=== PATIENT | male | born 1985 | race Caucasian/White ===

== ENCOUNTER 2018-03-04 14:37 | Outpatient (CLI) | payer OTHER ==
--- NOTE | 2018-03-05 12:47 | MRI Report ---
EXAM: MRI PELVIS WITHOUT CONTRAST EXAM DATE: 03/04/2018 03:59 PM. CLINICAL HISTORY: Left hip pain x3 weeks. COMPARISON: None. TECHNIQUE: Multiplanar, multisequence T1-weighted and fluid-sensitive sequences of the pelvis without contrast. Other: None. FINDINGS: Bones and articular surfaces: There is linear high signal consistent with tear at the anterior and an terosuperior left hip labrum. Tiny anterosuperior paralabral cyst formation measuring approximately 0 .4 cm short axis and 2.9 cm long axis coursing medially and superiorly from the anterosuperior labrum . No significant articular cartilage defects are seen. Sacroiliac joints appear symmetric and within normal limits. Pubic symphysis unremarkable. Musculotendinous structures: Fluid collection along the posterior margin of the right iliopsoas tendo n consistent with bursitis measuring 1.5 x 2.6 x 1.7 cm. No muscle edema, atrophy or fatty replacemen t. Miscellaneous: No significant pelvic free fluid. No lymphadenopathy. IMPRESSION: 1. Tear at the anterior and anterosuperior left hip labrum with small paralabral cyst formation. 2. Right iliopsoas bursitis. [facility] Referring Provider Line: [phone] SITE ID: [id number]
== END 2018-03-04 14:38 | disposition home or self-care (01) ==
LOC: DI 14:37
PROVIDERS: ATTEND Internal Medicine
DX: S73.102A Unspecified sprain of left hip, initial encounter (principal); M71.552 Other bursitis, not elsewhere classified, left hip
CPT/HCPCS: 72195

== ENCOUNTER 2018-12-14 09:15 | Outpatient (CLI) | payer OTHER ==
[2018-12-14] MEDS ORDERED: BUFFERED LIDOCAINE 10 ML SYRINGE ONE ×2 (09:46→11:49)
[2018-12-14] MEDS ORDERED: IOTHALAMATE MEGLUMINE 50 ML VIAL ONE (09:48)
[2018-12-14] MEDS ORDERED: GADOPENTETATE DIMEGLUMINE 5 ML VIAL IVP ONE ×3 (09:48→13:08)
[2018-12-14] MEDS ORDERED: IOTHALAMATE MEGLUMINE 50 ML VIAL IVP ONE (13:08)
[2018-12-14] MEDS: BUFFERED LIDOCAINE 10 ML SYRINGE IU ONE ×2 (13:09→13:15)
--- NOTE | 2018-12-14 13:49 | XRAY Report ---
Reason: PAIN IN LEFT HIP Procedure Date: 12/14/2018 Accession Number: [id number] / [id number] Procedure: FL - Arthrogram Needle Placement CPT Code: FULL RESULT: EXAM: LEFT HIP ARTHROGRAPHIC INJECTION WITH FLUOROSCOPIC GUIDANCE EXAM DATE: 12/14/2018 10:04 AM. CLINICAL HISTORY: Pain in left hip. COMPARISON: None. TECHNIQUE: The risks, benefits, and alternatives of the procedure were discussed with the patient. All questions were answered. Written and verbal consent were obtained. The hip joint was marked under fluoroscopy and prepped and draped in a sterile manner. Local anesthesia was performed with 1% lidocaine. A 22-gauge needle was then inserted into the hip joint. 10 mL of a solution containing 25% 1% lidocaine, 25% iodinated contrast, and a 1:200 dilution of gadolinium contrast in sterile saline was then injected. The needle was removed without immediate complication. Other: None. Fluoroscopy Time: 22 seconds. Number of Images: 5. FINDINGS: Bones and Joints: No fracture or subluxation. Injection: Fluoroscopic images demonstrate needle placement and contrast in the hip joint. IMPRESSION: Successful fluoroscopically guided arthrographic injection of the hip. [facility]
--- NOTE | 2018-12-14 16:02 | MRI Report ---
Reason: PAIN IN LEFT HIP Procedure Date: 12/14/2018 Accession Number: [id number] / [id number] Procedure: MRI - Arthrogram Hip LT CPT Code: FULL RESULT: EXAM: LEFT HIP MRI ARTHROGRAM WITH CONTRAST EXAM DATE: 12/14/2018 10:44 AM. CLINICAL HISTORY: Left hip pain. COMPARISON: 10/09/2018 radiograph. TECHNIQUE: Multiplanar, multisequence T1-weighted and fluid-sensitive, small jyuwk-am-nbrb sequences of the hip and large rpbjk-rz-csex sequences of the pelvis after an arthrographic injection of dilute gadolinium, dictated under a separate exam. Other: None. FINDINGS: Unfortunately, the contrast all leaked out of the joint space. Bones: No fractures or subluxations. No marrow edema or bone lesions. Left Hip: No acetabular retroversion. Femoral head/neck offset is within normal limits. No loose bodies. The articular cartilage is intact. There is suspicion for a full-thickness tear of the anterosuperior labrum at the 2 o'clock position (series 701, image 22 and series 901, image 22). The ligamentum teres is intact. Other Joints: Moderate degenerative change in the lower lumbar spine. The SI joints are normal. The right hip joint is unremarkable. Musculature: No edema or fatty atrophy. Minimal bilateral gluteus medius tendinosis is present. The visualized hamstring tendons are normal. The ischiofemoral space is normal. Pelvic Cavity: The visualized viscera are unremarkable. No lymphadenopathy. No free fluid in the pelvis. Other: The visualized sciatic nerves are unremarkable. No bursitis. The subcutaneous tissues are unremarkable. IMPRESSION: 1. Potential full-thickness tear of the anterosuperior labrum. This is difficult to confirm as nearly all the contrast leaked out of the joint space. The patient will be brought back for repeat examination and the present examination should not be charged. [facility]
--- NOTE | 2018-12-14 16:09 | MRI Report ---
Reason: LEFT HIP PAIN Procedure Date: 12/14/2018 Accession Number: [id number] / [id number] Procedure: MRI - Arthrogram Hip LT CPT Code: FULL RESULT: EXAM: LEFT HIP MRI ARTHROGRAM WITH CONTRAST EXAM DATE: 12/14/2018 01:55 PM. CLINICAL HISTORY: LEFT HIP PAIN. COMPARISON: ARTHROGRAM HIP 12/14/2018 10:44 AM. TECHNIQUE: Multiplanar, multisequence T1-weighted and fluid-sensitive, small cymxy-ot-bczd sequences of the hip and large zdksw-mt-xtap sequences of the pelvis after an arthrographic injection of dilute gadolinium, dictated under a separate exam. Other: None. FINDINGS: Bones: No fractures or subluxations. No marrow edema or bone lesions. Left Hip: No acetabular retroversion. Femoral head/neck offset is within normal limits. No loose bodies. The articular cartilage is intact. Anterior labrum tear. The ligamentum teres is intact. Left hip arthrogram contrast extravasation. Other Joints: Probable posterior left paracentral L5-S1 disk extrusion with severe left lateral recess stenosis and probable impingement proximal descending left S1 nerve root. Mild central spinal canal stenosis. Posterior 2-3 mm L4-L5 disk protrusion. Severe left L5-S1 disk degeneration. Modic type I degenerative marrow edema left L5-S1 interspace. Musculature: No edema or fatty atrophy. The gluteus medius and minimus tendons are normal. The visualized hamstring tendons are normal. The ischiofemoral space is normal. Pelvic Cavity: The visualized viscera are unremarkable. No lymphadenopathy. No free fluid in the pelvis. Other: The visualized sciatic nerves are unremarkable. No bursitis. The subcutaneous tissues are unremarkable. IMPRESSION: 1. Probable posterior left paracentral L5-S1 disk extrusion with severe left lateral recess stenosis and probable impingement proximal descending left S1 nerve root. 2. Anterior left hip acetabular labrum tear (image 20 series 701). [facility]
== END 2018-12-14 09:16 | disposition home or self-care (01) ==
LOC: DI 09:15
PROVIDERS: ATTEND Orthopaedic Surgery
DX: S73.192A Other sprain of left hip, initial encounter (principal); M51.26 Other intervertebral disc displacement, lumbar region; M51.37 Other intervertebral disc degeneration, lumbosacral region; M48.061 Spinal stenosis, lumbar region without neurogenic claudication
CPT/HCPCS: 27093; 73722; 77002; Q9961

== ENCOUNTER 2019-01-30 12:02 | Outpatient (CLI) | payer OTHER ==
--- NOTE | 2019-01-30 16:47 | MRI Report ---
Reason: L BACK PAIN WITH FALLS Procedure Date: 01/30/2019 Accession Number: [id number] / [id number] Procedure: MRI - Lumbar Spine W/O CPT Code: FULL RESULT: EXAM: MRI LUMBAR SPINE WITHOUT CONTRAST EXAM DATE: 01/30/2019 12:40 PM. CLINICAL HISTORY: Low back pain with falling. COMPARISON: None. TECHNIQUE: Multiplanar, multisequence T1-weighted and fluid-sensitive sequences of the lumbar spine from T12 to S1 without contrast. Other: None. FINDINGS: Spinal Canal: The conus terminates at L1. Unremarkable appearance of the conus medullaris. Alignment: Minimal levoconvex asymmetric curve. Bone Marrow: Five hzz-ufa-janogun lumbar vertebral bodies are assumed. Moderately prominent asymmetric Modic type I degenerative endplate signal changes laterally on the left at L5-S1. Disk Levels/Facets: T12-L1: Unremarkable. L1-L2: Slight disk bulge, otherwise unremarkable, no stenosis. L2-L3: Unremarkable. L3-L4: Unremarkable. L4-L5: Mild degenerative disk disease. Minimal facet arthropathy. Circumferential disk bulge. Additional shallow midline posterior protrusion with annular fissure. Minimal stenosis. No definite nerve root compression. L5-S1: Moderate to severe asymmetric left greater than right degenerative disk disease. Mild facet arthropathy. Circumferential disk bulge with marginal spurring. Large disk extrusion to the left of midline. This extends posteriorly at least 1 cm. Maximal craniocaudal dimension is 14 mm. This large lesion begins just to the right of midline and extends laterally to the left across the central canal and lateral recess into the left foramen and possibly the extraforaminal zone also. Mild central stenosis. Severe left lateral recess stenosis. Severe left foraminal stenosis. The right neural foramen is mildly narrowed. Musculature: Normal. No edema or fatty atrophy. Other: None. IMPRESSION: 1. Severe multi zone stenosis on the left from very large left of midline disk extrusion at the L5-S1 level where there is marked left side degenerative disk disease. Stenosis at L5-S1 is severe at the level of the left lateral recess and left neural foramen. This may correlate to a left L5 and/or left S1 nerve root compression syndrome. 2. Less severe degenerative changes noted at L4-L5 without evidence for significant neural impingement. Comment: The following findings are so common in adults without low back pain that while we report their presence, they must be interpreted with caution and in the context of the clinical situation. (Reference Nereida et al, Spine 2001) Prevalence of findings in patients without low back pain: Disk degeneration (any evidence): 92% Disk desiccation/T2 signal loss: 83% Disk height loss: 56% Disk bulge: 64% Disk protrusion: 32% Annular tear/high intensity zone: 38% [facility]
== END 2019-01-30 12:03 | disposition home or self-care (01) ==
LOC: DI 12:02
PROVIDERS: ATTEND Internal Medicine
DX: M51.27 Other intervertebral disc displacement, lumbosacral region (principal); M51.37 Other intervertebral disc degeneration, lumbosacral region; M48.07 Spinal stenosis, lumbosacral region; M25.552 Pain in left hip; R53.1 Weakness; Z91.81 History of falling
CPT/HCPCS: 72148

== ENCOUNTER 2024-04-05 13:38 | Outpatient (CLI) | payer OTHER | END 2024-04-05 23:59 | disposition EMS.NT | LOC: EMS 13:38 | DX: S71.112A Laceration without foreign body, left thigh, initial encounter (principal); W26.8XXA Contact with other sharp object(s), not elsewhere classified, initial encounter; Y92.89 Other specified places as the place of occurrence of the external cause ==